=== PATIENT | male | born 1945 | race Caucasian/White ===

== ENCOUNTER 2017-03-07 12:42 | Emergency (ER) | payer MEDICARE ==
--- NOTE | 2017-03-07 14:45 | ED ---
Adult Trauma - HPI Summary HPI Summary: Pt here w/ fall prior to arrival. Slipped on steps and hit his Leg lower leg - has pain here w/ movement only. Also has Rt flank pain after hitting back on step - no pain at rest - only with movement. He denies new numbness, tingling, weakness. 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 No previous back issues. Has not urinated since injury but feels he needs to go soon. Denies hitting his head nad no SPRINGER, visual change, nausea, vomiting, neck pain. Denies chest pain, pain w/ breathing, SOB, ab pain. Take ASA 81mg daily because PCP told him 20 years ago it would be a good idea - no cardiac, CVA, clotting hx. Otherwise, no current medical conditions requiring treatment. 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 - Cancer History Cancer Type, Location and Year: melanoma Rt flank; adenocarcinoma face/neck/jaw Infectious Disease History: No Infectious Disease History: Denies: Traveled Outside the [place] in Last 30 Days - Family History Known Family History: Positive: None - Social History Occupation: Retired Lives: With Family Alcohol Use: None Hx Substance Use: No Substance Use Type: Reports: None Review of Systems Constitutional: Negative Negative: Fatigue Eyes: Negative Negative: Photophobia, Blurred Vision, Diplopia ENT: Negative Negative: Dental Pain Cardiovascular: Negative Negative: Chest Pain Respiratory: Negative Negative: Shortness Of Breath Gastrointestinal: Negative Negative: Abdominal Pain, Vomiting, Nausea Positive: no symptoms reported Musculoskeletal: Other - see HPI Skin: Negative Neurological: Negative Psychological: Normal All Other Systems Reviewed And Are Negative: Yes Physical Exam Triage Information Reviewed: Yes Vital Signs On Initial Exam: Initial Vitals Temp Pulse Resp BP Pulse Ox 98.5 F 68 18 168/62 96 03/07/17 12:55 03/07/17 12:55 03/07/17 12:55 03/07/17 12:55 03/07/17 12:55 Vital Signs Reviewed: Yes Appearance: Positive: Well-Appearing, No Pain Distress, Well-Nourished Skin: Positive: Warm, Dry - iliana sized area of ecchymosis w/ dimple over Lt anterior tibial region (distally) - no break in skin here; old scar over Rt flank - no ecchymosis, no edema, no erythema Head/Face: Positive: Normal Head/Face Inspection Eyes: Positive: Normal, EOMI, ARNALDO, Conjunctiva Clear ENT: Positive: Hearing grossly normal, TMs normal - no hemotympanum Dental: Negative: Dental Fracture @ Neck: Positive: Supple, Nontender Respiratory/Lung Sounds: Positive: Breath Sounds Present Cardiovascular: Positive: Pulses are Symmetrical in both Upper and Lower Extremities Abdomen Description: Positive: Nontender, Soft, CVA Tenderness (R) - TTP Bowel Sounds: Positive: Present Musculoskeletal: Positive: Strength/ROM Intact - hip, ankle, toes w/o pain and good ROM; can move knee some but triggers pain in LE - mild pain w/ movement ( pt report 2/10 w/ movement - 0/10 at rest), Pain @ - palpation of Lt fibula presents as more pronounced and TTP compared to Rt; generalized calf tenderness w/ palpation Lt Neurological: Positive: Normal, Sensory/Motor Intact, Alert, Oriented to Person Place, Time, CN Intact II-III Psychiatric: Positive: Normal Diagnostics - Vital Signs Vital Signs Temp Pulse Resp BP Pulse Ox 03/07/17 12:55 98.5 F 68 18 168/62 96 - Laboratory Result Diagrams: 03/07/17 16:00 03/07/17 16:00 Lab Statement: Any lab studies that have been ordered have been reviewed, and results considered in the medical decision making process. Adult Trauma Course/Dx - Course Course Of Treatment: Pt presents w/ fall earlier today - hurt his Lt LE and Rt flank. XR's reveal tibial and fibular fractures on the LLE. Placed EMS splint on LE to prevent excess movement. Spoke w/ Dr. Kay who states he's not comfortable addressing this injury - states to check with 2nd call group or ship to trauma center. Will add CT of LLE w/o constrast (pending). Awaiting CT ab/pelvis w/ constrast for flank injury. If pt has traumatic injury here, will transfer to trauma center (pt [facility]). If no traumatic injury of ab/pelvis, call 2nd ortho group. Again asked pt he he would like pain medication before signing out - he declines. Signed out to Aishwarya Conway PA-C at 17:26 - Diagnoses Provider Diagnoses: Left tibial fracture, Left fibular fracture, Right flank pain Discharge - Discharge Plan Condition: Good Disposition: HOME Discharge Disposition Comment: signed out to Aishwarya Conway PA-C Patient Education Materials: Leg Fracture (ED) Referrals: Tejas Dotson MD [Medical Doctor] - Non Staff,Doctor [Primary Care Provider] - Additional Instructions: Use crutches and stay nonweight bearing Keep splint on area and keep dry Call ortho office to set up appointment for follow up Use Tylenol for pain every 6 hours Ice, elevate Follow up with primary about renal artery thrombosis, 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
--- NOTE | 2017-03-07 15:32 | RAD ---
INDICATION: Fall, left lower leg pain and deformity. TECHNIQUE: 2 views of the left lower leg were obtained. FINDINGS: There is an oblique comminuted fracture of the distal diaphysis of the tibia. A component of the fracture extends into the distal metaphysis. The major distal fracture fragment is displaced one cortical diameter lateral and one cortical diameter posterior relative to the proximal fragment. There is also an oblique slightly comminuted fracture of the proximal fibula. The major distal lateral fragment is displaced slightly lateral proximal one cortical diameter. IMPRESSION: 1. OBLIQUE, COMMINUTED, DISPLACED FRACTURE OF THE DISTAL TIBIA. 2. OBLIQUE, SLIGHTLY COMMINUTED, SLIGHTLY DISPLACED FRACTURE OF THE PROXIMAL FIBULA.
[2017-03-07 16:12] LABS: Hematocrit 45 % (42-52); Hemoglobin 15.1 g/dl (14.0-18.0); Mean Corpuscular HGB Conc 33 g/dl (31-36); Mean Corpuscular Hemoglobin 30 pg (27-31); Mean Corpuscular Volume 90 fL (80-94); Mean Platelet Volume 8 um3 (7.4-10.4); Red Blood Count 5.02 10^6/ul (4.0-5.4); Red Cell Distribution Width 15 % (10.5-15); White Blood Count 13.4 10^3/ul (3.5-10.8)
[2017-03-07 16:58] LABS: Albumin 4.6 g/dL (3.2-5.2); BUN/Creatinine Ratio 12.6 (8-20); EGFR African American 110.9 (>60); EGFR Non-African American 86.3 (>60); Globulin 3.2 g/dL (2-4); Total Bilirubin 0.5 mg/dL (0.2-1.0); Total Protein 7.8 g/dL (6.4-8.9)
[2017-03-07] MEDS ORDERED: Iohexol 300* (CONTRAST) 10 ML SDV IV ONE (17:15)
--- NOTE | 2017-03-07 18:10 | RAD ---
INDICATION: Right flank pain status post blunt trauma. COMPARISON: There are no prior studies available for comparison. TECHNIQUE: A CT scan of the abdomen and pelvis was performed with intravenous and without oral contrast following intravenous injection of 125 ml of Omnipaque 300 nonionic contrast. Contiguous axial sections were obtained from the lung bases through the symphysis pubis. Images were reconstructed in the coronal and sagittal planes. FINDINGS: The lung bases are clear. No pleural effusion is present. The liver and spleen are normal in size. The liver is decreased in attenuation consistent with fatty infiltration. There is no evidence for contusion or laceration. There are several small subcentimeter hypodense hepatic lesions which are too small to characterize by CT although likely represent cysts. No calcified gallstones are seen. The pancreas appears to be within normal limits. The kidneys and adrenal glands are normal in size. No hydronephrosis is seen. There is a 2.8 cm cyst arising from the lower pole of the left kidney and a couple subcentimeter cysts within the right kidney. There is a 1 cm thrombosed aneurysm present in the region of the right renal hilum. The aorta is normal in caliber with mild calcific plaque present. No significant enlarged retroperitoneal lymph nodes are seen. The stomach, small and large bowel appear nondistended. The appendix is within normal limits. There is moderate sigmoid diverticulosis without evidence for diverticulitis. There is thinning of the left lateral abdominal wall muscles in the lower abdomen likely postsurgical. No free intraperitoneal air or fluid is seen. There is deformity of the left lateral iliac bone most consistent with postsurgical or posttraumatic change. No other focal osseous abnormalities are seen. IMPRESSION: 1. NO EVIDENCE FOR ACUTE FINDING. 2. HEPATIC STEATOSIS. 3. 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
--- NOTE | 2017-03-07 18:49 | RAD ---
INDICATION: Traumatic fractures of the left tibia and fibula. COMPARISON: Comparison is made with a prior x-ray study of the left lower leg from March 07, 2017. TECHNIQUE: Contiguous axial sections were obtained of the left lower leg. Images were reconstructed in the sagittal and coronal planes. FINDINGS: There is an oblique comminuted fracture of the distal diaphysis of the tibia. There is a hairline component of the fracture which extends distally through the metaphysis to the distal articular margin. The major distal fragment is displaced posterior and lateral 1 cortical diameter. There is also an oblique comminuted fracture of the proximal metaphysis of the fibula. The major distal fragment is displaced one cortical diameter lateral relative to the proximal fragment. No other fractures are seen. IMPRESSION: 1. OBLIQUE COMMINUTED SLIGHTLY DISPLACED FRACTURE OF THE DISTAL DIAPHYSIS AND METAPHYSIS OF THE TIBIA. THERE IS A HAIRLINE COMPONENT WHICH EXTENDS TO THE DISTAL ARTICULAR MARGIN. 2. OBLIQUE COMMINUTED SLIGHTLY DISPLACED FRACTURE OF THE PROXIMAL METAPHYSIS OF THE FIBULA.
--- NOTE | 2017-03-07 18:55 | PN ---
Progress Note - Progress Note Date of Service: 03/07/17 Note: Patient signed out by Marisa AGUIRRE pending CT abdomen CT abdomen: IMPRESSION: 1. NO EVIDENCE FOR ACUTE FINDING. 2. HEPATIC STEATOSIS. 3. 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 spoke with dr Amador said to have follow up with vascular about thromboses right renal artery Spoke with dr Dotson at 18:40 and said splint, follow up in office. Placed sugar tong and posterior walking on left leg Ortho glass used neurovascular intact before and after Patient declined any pain medication said will take tyenlol. told to ice, elevate and stay nonweight bearing. patient understands and agrees with plan. When went to discharge stood up and became diaphoretic and sweaty. Finger stick 130. ekg normal sinus rhythmn. discussed with dr amador likely vasovagal. had eat some food and felt better. vital signs stable so safe for d/c. Diagnosis: left fibula and tibia fracture Condition: stable Disposition: home
[2017-03-07 20:21] VITALS: BP 103/40
== END 2017-03-07 20:20 | disposition home or self-care (01) ==
LOC: ED 12:42
DX: S82.402A Unspecified fracture of shaft of left fibula, initial encounter for closed fracture (principal); S82.202A Unspecified fracture of shaft of left tibia, initial encounter for closed fracture; R10.84 Generalized abdominal pain; W10.9XXA Fall (on) (from) unspecified stairs and steps, initial encounter; Y93.9 Activity, unspecified; Y92.9 Unspecified place or not applicable; Y99.9 Unspecified external cause status
CPT/HCPCS: 36415; 74177; 80053; 85025; 85610; 85730; 93005; 99282; Q9967

== ENCOUNTER 2019-02-06 16:02 | Emergency (ER) | payer MEDICARE ==
[2019-02-06 16:52] VITALS: BP 134/65
[2019-02-06] MEDS ORDERED: DOXYcycline CAP(*) 100 MG PO ONE (17:56)
--- NOTE | 2019-02-06 18:03 | UC ---
Skin Complaint HPI - HPI Summary HPI Summary: tick bite right upper thigh removed 2 days ago---unknown how long it was attached------patient wishes to have doxycycline - History of Current Complaint Chief Complaint: UCSkin Time Seen by Provider: 02/06/19 17:40 Stated Complaint: TICK BITE Hx Obtained From: Patient Onset/Duration: Sudden Onset, Lasting Days - 2 Timing: Constant Pain Intensity: 0 Pain Scale Used: 0-10 Numeric Location: Discrete Character: Redness Aggravating Factor(s): Nothing Alleviating Factor(s): Nothing Associated Signs & Symptoms: Positive: Negative Related History: Possible Reaction to: Insect - Allergy/Home Medications Allergies/Adverse Reactions: Allergies Allergy/AdvReac Type Severity Reaction Status Date / Time No Known Allergies Allergy Verified 02/06/19 16:52 Home Medications: Home Medications Ascorbic Acid TAB* [Vitamin C TAB*] 1 tab PO DAILY 02/06/19 [History Confirmed 02/06/19] Aspirin [Aspir-Low] 1 tab PO DAILY 02/06/19 [History Confirmed 02/06/19] Cholecalciferol TAB* [Vitamin D TAB*] 1 tab PO DAILY 02/06/19 [History Confirmed 02/06/19] Cyanocobalamin TAB* [Vitamin B12 TAB*] 1 tab PO DAILY 02/06/19 [History Confirmed 02/06/19] Rosuvastatin Calcium [Crestor] 1 tab PO DAILY 02/06/19 [History Confirmed ] amLODIPine TAB* [Norvasc 5 mg TAB*] 1 tab PO DAILY 02/06/19 [History Confirmed 02/06/19] metFORMIN* [Glucophage 500 MG TAB *] 1 tab PO DAILY 02/06/19 [History Confirmed 02/06/19] PMH/Surg Hx/FS Hx/Imm Hx Previously Healthy: No Endocrine History: Diabetes, Dyslipidemia Cardiovascular History: Hypertension Other History Of: Negative For: Anticoagulant Therapy - ASA 81mg daily - Surgical History Surgical History: Yes Surgery Procedure, Year, and Place: necrosis of jaw fixed with gaft - Family History Known Family History: Positive: None - Social History Occupation: Retired Lives: With Family Alcohol Use: None Substance Use Type: None Smoking Status (MU): Never Smoked Tobacco Review of Systems All Other Systems Reviewed And Are Negative: Yes Constitutional: Positive: Negative Skin: Positive: Other - erythema from tick right upper thigh Eyes: Positive: Negative ENT: Positive: Negative Respiratory: Positive: Negative Cardiovascular: Positive: Negative Gastrointestinal: Positive: Negative Genitourinary: Positive: Negative Motor: Positive: Negative Neurovascular: Positive: Negative Musculoskeletal: Positive: Negative Neurological: Positive: Negative Psychological: Positive: Negative Is Patient Immunocompromised?: No Physical Exam Triage Information Reviewed: Yes Appearance: Well-Appearing, No Pain Distress, Well-Nourished Vital Signs: Initial Vital Signs Temp 97.3 F 02/06/19 16:49 Pulse 60 02/06/19 16:49 Resp 16 02/06/19 16:49 BP 134/65 02/06/19 16:49 Pulse Ox 100 02/06/19 16:49 Vital Signs Reviewed: Yes Eye Exam: Normal Eyes: Positive: Conjunctiva Clear ENT Exam: Normal ENT: Positive: Normal ENT inspection, Hearing grossly normal. Negative: Trismus , Muffled voice, Hoarse voice Respiratory Exam: Normal Respiratory: Positive: No respiratory distress, No accessory muscle use Cardiovascular Exam: Normal Cardiovascular: Positive: Brisk Capillary Refill Musculoskeletal Exam: Normal Musculoskeletal: Positive: Strength Intact, ROM Intact, No Edema Neurological Exam: Normal Neurological: Positive: Alert, Muscle Tone Normal Psychological Exam: Normal Skin: Positive: Other - 5 mm circular bruise/erythema right upper thigh Course/Dx - Course Course Of Treatment: one dose 200mg of Doxycycline education regarding lyme and follow up - Diagnoses Provider Diagnosis: Risk of exposure to Lyme disease Discharge - Sign-Out/Discharge Documenting (check all that apply): Patient Departure All imaging exams completed and their final reports reviewed: No Studies - Discharge Plan Condition: Stable Disposition: HOME Patient Education Materials: Tick Bite (ED) Referrals: Mackenzie Reyes MD [Primary Care Provider] - If Needed - Billing Disposition and Condition Condition: STABLE Disposition: Home
== END 2019-02-06 18:06 | disposition home or self-care (01) ==
LOC: UCEAST 16:02
DX: S70.361A Insect bite (nonvenomous), right thigh, initial encounter (principal); W57.XXXA Bitten or stung by nonvenomous insect and other nonvenomous arthropods, initial encounter; Y92.9 Unspecified place or not applicable; E11.9 Type 2 diabetes mellitus without complications; E78.5 Hyperlipidemia, unspecified; I10 Essential (primary) hypertension; Z79.84 Long term (current) use of oral hypoglycemic drugs; Z79.82 Long term (current) use of aspirin
CPT/HCPCS: 99212; A9270-GY; G0463